=== PATIENT | female | born 1950 | race Caucasian/White ===

== ENCOUNTER 2022-12-27 09:18 | Day surgery (SDC) | payer BC ==
[2022-12-24 09:17] VITALS: BMI 32.3
[2022-12-27] MEDS ORDERED: PROPOFOL 40 ML ONE (10:53)
== END 2022-12-27 12:30 | disposition home or self-care (01) ==
LOC: CSHSDC 09:18
PROVIDERS: ATTEND Internal Medicine Gastroenterology
PROC: 0DJD8ZZ Inspection of Lower Intestinal Tract, Via Natural or Artificial Opening Endoscopic (ICD-10-PCS; principal; 2022-12-27)
DX: Z12.11 Encounter for screening for malignant neoplasm of colon (principal); I10 Essential (primary) hypertension; E11.9 Type 2 diabetes mellitus without complications; E78.5 Hyperlipidemia, unspecified; K21.9 Gastro-esophageal reflux disease without esophagitis; M19.90 Unspecified osteoarthritis, unspecified site; F32.A Depression, unspecified; K64.9 Unspecified hemorrhoids; Q43.8 Other specified congenital malformations of intestine; Z88.6 Allergy status to analgesic agent; Z86.010 Personal history of colon polyps; Z88.1 Allergy status to other antibiotic agents; Z79.899 Other long term (current) drug therapy
CPT/HCPCS: J2704